=== PATIENT | female | born 1985 | race Caucasian/White ===

== ENCOUNTER 2020-03-09 04:32 | Inpatient (IN) ==
[2020-03-09] MEDS ORDERED: ONDANSETRON HCL/PF 2 MG/ML VIAL IV PRN (04:38)
[2020-03-09] MEDS ORDERED: diphenhydrAMINE HCL 25 MG CAPSULE PO PRN (04:38)
[2020-03-09] MEDS ORDERED: OXYTOCIN 20 UNITS in RINGER'S SOLUTION,LACTATED 1,000 ML IV ONE ×4 (04:38)
[2020-03-09] MEDS ORDERED: BISACODYL 10 MG SUPP.RECT RC PRN (04:38)
[2020-03-09] MEDS ORDERED: RINGER'S SOLUTION,LACTATED 1,000 ML IV ONE (04:38)
[2020-03-09] MEDS ORDERED: SENNOSIDES 8.6 MG TABLET PO PRN (04:38)
[2020-03-09] MEDS ORDERED: SIMETHICONE 80 MG TAB.CHEW PO PRN (04:38)
[2020-03-09] MEDS ORDERED: KETOROLAC TROMETHAMINE 30 MG/ML VIAL IV PRN (04:38)
[2020-03-09 05:13] LABS: Hematocrit 38.8 % (37.0-47.0); Hemoglobin 12.7 gm/dL (12.5-16.0); Mean Cell Volume 90.7 fl (78-100); Mean Corpuscular Hemoglobin 29.7 pg (27-31); Mean Corpuscular Hgb Conc 32.7 g/dl (32-36); Neutrophil # 9.4 K/mm3 (1.3-6.0); Neutrophil % 70.5 % (42-75.0); Platelet Count 237 K/mm3 (150-450); Red Blood Count 4.28 M/mm3 (4.2-5.4); Red Cell Distribution Width 13.2 % (11.5-14.0); White Blood Count 13.3 K/mm3 (4.0-10.5)
[2020-03-09] MEDS: RINGER'S SOLUTION,LACTATED 1,000 ML IV PRN ×2 (05:14→11:14)
[2020-03-09 05:26] LABS: Albumin * 2.6 gm/dl (3.4-5.0); Anion Gap 13.2 mmol/L (6.8-13.8); BUN/Creatinine Ratio 14.9 (9.0-21.6); Bilirubin, Total 0.2 mg/dL (0.0-1.1); Ca. Corrected For Albumin 9.9 mg/dL (8.4-10.2); Calcium * 9.1 mg/dL (7.9-10.9); Carbon Dioxide 25.7 mmol/L (24-32.6); Potassium 3.9 mmol/L (3.4-4.6); Total Protein 6.5 gm/dL (6.2-8.2)
[2020-03-09] MEDS ORDERED: PHENYLEPHRINE HCL 10 MG/ML AMPUL ONE (06:24)
[2020-03-09] MEDS ORDERED: BUPIVACAINE HCL/EPINEPHRINE 50 ML VIAL ONE (06:25)
--- NOTE | 2020-03-09 06:45 | ANES ---
Anesthesia Pre Procedure Eval Vitals/Labs: Last Vital Signs Temp 36.7 C 03/09/20 05:00 Pulse 96 03/09/20 05:00 Resp 20 03/09/20 05:00 BP 126/86 03/09/20 05:00 Pulse Ox 97 03/09/20 05:00 HOME MEDICATIONS calcium carbonate 200 mg calcium (500 mg) chewable tablet 400 mg PO TID PRN tab 08/26/19 [Last Taken 03/08/20 08:00] citalopram 20 mg tablet 20 mg PO DAILY 08/26/19 [Last Taken 03/08/20 08:00] lamotrigine 25 mg tablet 50 mg PO ONCE tab 08/26/19 [Last Taken 03/08/20 08:00] levothyroxine 100 mcg capsule 100 mcg PO DAILY 08/26/19 [Last Taken 03/06/20 08:00] prenat.vits,marline,klh-rqut-xzgan 1 tab PO DAILY 08/26/19 [Last Taken 03/08/20 08:00] famotidine 20 mg tablet 20 mg PO DAILY 09/25/19 [Last Taken 03/08/20 08:00] Allergies/Adverse Reactions: Allergies Allergy/AdvReac Type Severity Reaction Status Date / Time venom-wasp Allergy Anaphylaxis Verified 03/09/20 04:57 amoxicillin AdvReac Hives Verified 03/09/20 04:57 - Planned Procedure Planned Procedure: Repeat Section Medication List Reviewed:: Yes Allergies Verified: Yes Medical History (Last Reviewed 03/09/20 @ 06:44 by Jorge Flores CRNA) GERD (gastroesophageal reflux disease) only with Depression Hypothyroidism Onset Date: ~2011 PCOS (polycystic ovarian syndrome) diagnosed at age 16 Anemia Missed Onset Date: ~2017 Preeclampsia Onset Date: ~2013 Surgical History (Last Reviewed 03/09/20 @ 06:44 by Jorge Flores CRNA) H/O right knee surgery Onset Date: ~2005 ACL repair History of section Onset Date: ~2013 due to pre-eclampsia, 38 weeks History of dilation and curettage missed History of wisdom tooth extraction Onset Date: ~2003 Family History (Last Reviewed 03/09/20 @ 06:44 by Jorge Flores CRNA) Mother Lupus Hypertension Father Depression Brother Hypertension Depression Pulmonary hypertension - Family Anesthesia History Family History:: no untoward family reactions to anesthesia, no familial bleeding tendencies, no family history of clotting disorders, no family history of premature - Airway/Neck/Teeth Within Normal Limits:: Yes Teeth Condition: intact Neck Exam: full range of motion Mallampatti Score: 1 Thyromental (T-M) distance: > 6 cm Mandibulo Hyoid distance: > 3 cm - Respiratory Respiratory Physical: lungs clear Smoking Status: Never smoker Sleep Apnea currently treated: No Sleep Apnea by current assessment: No - Cardiovascular Tolerate Activity: Fair Heart Sounds: S1 & S2, Regular - Anesthesia Assessment and Plan ASA Class: PS, II, E Anesthesia Type Plan: Block - Biltaeral TAP block for post op pain relief, Spinal
[2020-03-09] MEDS ORDERED: ceFAZolin SODIUM 1 GM VIAL ONE (06:54)
--- NOTE | 2020-03-09 08:47 | OR ---
Operative Report - Dictated Report Narrative: Date of delivery: 03/09/2020 Time of delivery: 743 Gender: female weight: 3135 grams APGARS: 5/9 Preoperative diagnosis: IUP at 37w 1d, GHTN, PCOS Postoperative diagnosis: IUP at 37w 1d, GHTN, PCOS, extensive intra-abdominal adhesions, extensive bladder adhesions, adhesion of the uterus to the right pelvic side wall, omental hernia, nuchal cord x4, vacuum-assisted delivery Procedure: Repeat delivery, lysis of adhesions Surgeon: Dr. Loza Anesthesia: Spinal Anesthesiologist: Jorge Flores CRNA Description of the procedure: The patient is a 34 year old at 37w 1d who presents to labor and delivery today for a repeat delivery due to GHTN. She was taken to the operating room where spinal anesthesia was induced. She was then prepped and draped in the supine position in the standard surgical fashion. The abdomen was prepped with duraprep. Prophylactic antibiotics were administered. A Pfannenstiel skin incision was made following the previous skin incision. The incision was carried through the subcutaneous tissue which was greater than 4 cm. The fascia was incised in the midline. The fascial incision was extended laterally and sharply. The fascia was tented up superiorly and dissected off the underlying rectus muscle. An omental hernia was noted superiorly and this was dissected off the rectus muscle. The peritoneum was entered bluntly with good visualization of both the bladder and the bowel. The uterus was noted to be adherent to the right pelvic side wall. This was a dense adhesion which I decided not to take down due to concern for heavy bleeding. Instead, I extended both my skin incision and the fascial incision to create more room for delivery. The bladder was also densely adherent and a bladder flap was created being careful to identify the bladder at all times and to separate it from the lower segment. A large Ryan retractor was placed. The uterus was incised in a low transverse fashion. The placenta was cut along with the uterine incision. The uterine incision was extended bluntly. Membranes were ruptured and clear fluid was noted. Initially, a double nuchal cord was noted and the cord was reduced. Once the first two loops were reduced, an additional two loops were noted and reduced prior to delivery. The vertex did not deliver easily and thus a vacuum was used due to the position of the head. The shoulders delivered without difficulty but then the right arm was delivered to allow the rest of the body to deliver. Gentle traction was used throughout delivery. The cord was clamped and cut and the was handed off to the attending pediatric staff. Cord blood was collected. The placenta was delivered by expression and appeared intact. The uterus was cleared of all clots and debris. The uterine incision was closed with a double layer of 0-vicryl. Pressure was held for 5 minutes as the patient had large vessels on the left side of the uterine incision. Additional figure of eight sutures were placed for additional hemostasis. The Ryan retractor was removed from the abdomen. Hemostasis was adequate. The rectus muscles were reapproximated in the midline using 2-0 vicryl. The subfascial tissues were examined and made hemostatic. The rectus muscles we re inspected and made hemostatic. The fascia was closed with 1-0 vicryl suture in a running fashion. The subcutaneous tissue was irrigated and made hemostatic. The space was closed with 2-0 vicryl for prevention of wound infection. The skin was closed with 3-0 monocryl on a Colt needle. Jemison chau was placed over the incision. The incision was covered with a dressing for 24 hours for inf ection prevention. All sponge, lap, and needle counts were correct x3. The patient tolerated the procedure well. She was transferred to the recovery room in stable condition. EBL: 1000 mL Complications: none Specimens: cord blood, placenta History for MU Definition: * The number of deliveries resulting in a live the patient experienced prior to current hospitalization * The previous delivery of live twins or any live multiple gestation is considered one live event. *If primagravida or nulliparous is documented select zero for the number of previous live births. Live Events: 1
--- NOTE | 2020-03-09 09:10 | ANES ---
Anesthesia Procedure Note Procedure Note: ANESTHESIA PROCEDURE NOTE Date of Procedure: 03/09/2020 Time of procedure: 8:55 AM. Performed by: PEREZ Lunsford CRNA, MSN Non Destructive Testing Specialist: Alee Quinn RN. Preprocedure diagnosis: Post section pain. Post procedure diagnosis: Same. Procedure: Bilateral TAP block Indications: Post section pain relief. Findings: See below. Details of the procedure: The patient was brought to PACU and placed in the supine position. The patient was prepped with chlorhexidine and using ultrasound guidance the 3 abdominal muscular planes were identified and lidocaine 1% was infiltrated to the skin of the intended injection site. Under ultrasound guidance the the internal oblique and transverse this abdominis muscle layers were approached with visualization of a 4 inch block needle until the tip of the needle rested in the plane between the muscles. 25 mL bupivacaine 0.5% with 1-200,000 epinephrine was injected and the procedure was repeated on the other side. Please see radiology/ultrasound report for details and images of the procedure. EBL: 0 Fluids: N/A. Specimen: N/A. Post procedure condition: The patient tolerated the procedure well. No complications were noted. Thank you for this consultation. Jorge Flores CRNA, ARNP, MSN
--- NOTE | 2020-03-09 09:11 | ANES ---
Post Anesthesia Discharge - Transfer of Care Transfer of Care handoff given to nurse: Yes - Discharge from PACU Discharge from PACU when meets criteria: Yes - Alert and comfortable.
--- NOTE | 2020-03-09 09:14 | ANES ---
Post Anesthesia Assessment - Vital Signs Vitals: Last Vital Signs Temp 36.7 C 03/09/20 09:10 Pulse 129 H 03/09/20 09:10 Resp 16 03/09/20 09:10 BP 142/76 H 03/09/20 09:10 Pulse Ox 100 03/09/20 09:10 Airway Patency: Normal - Mental Status Level Of Consciousness: Awake, Alert, Appropriate - Pain Level Pain Score: 0 - N/V Assessment Nausea/Vomiting Presence: None Dehydration:: No
[2020-03-09] MEDS: DOCUSATE SODIUM 100 MG CAPSULE PO SCH ×2 (09:34→21:21)
[2020-03-09] MEDS: HYDROcodone/ACETAMINOPHEN 1 EACH TABLET PO PRN ×5 (09:34→23:09)
[2020-03-09] MEDS: IBUPROFEN 800 MG TABLET PO PRN ×3 (09:35→23:09)
[2020-03-10] MEDS: HYDROcodone/ACETAMINOPHEN 1 EACH TABLET PO PRN ×4 (03:44→16:46)
[2020-03-10] MEDS ORDERED: lamoTRIgine 100 MG TABLET PO SCH (03:45)
--- NOTE | 2020-03-10 03:47 | PN ---
Subjective - Date and Time Seen Date: 03/10/20 Time: 03:45 Subjective Narrative: Patient reports pain but is currently getting pain medication. No other complaints. Objective Objective Narrative: See vital signs - Review of Systems Generalized/Overall Review: Reports: No Symptoms Reported Misc: All systems neg except as marked - Vitals Vitals: Last Vital Signs Temp 36.6 C 03/09/20 20:08 Pulse 97 03/09/20 20:08 Resp 16 03/09/20 20:08 BP 133/81 03/09/20 20:08 Pulse Ox 97 03/09/20 20:08 - Abnormal Lab Findings Abnormal Lab Findings: Abnormal Lab Results 03/09/20 03/09/20 03/09/20 Range/Units 04:50 04:50 08:36 WBC 13.3 H (4.0-10.5) K/mm3 Immature Gran % (Auto) 1.10 H (0.001-0.429) % Immature Gran # (Auto) 0.15 H (0.000-0.0310) K/mm3 Lymphocytes % 18.8 L (20-51) % Neutrophils # 9.4 H (1.3-6.0) K/mm3 ALT 17 L (19-67) U/L Albumin 2.6 L (3.4-5.0) gm/dl U Random Total Protein 14.0 H (0-12) mg/dL - Exam Constitutional: Present: Alert, Oriented x3, Cooperative, No distress ENT Exam: Present: hearing grossly normal Neck: Present: normal inspection Breasts: Present: Exam deferred Abdomen: Present: soft, nontender, nondistended - dressing c/d/i /Rectal: Present: Exam deferred Extremity: Present: non-tender, no calf tenderness Skin Exam: Present: normal color, warm/dry, no cyanosis Neurologic: Present: alert, normal mood/affect, oriented x 3 Appearance: Present: appropriate appearance, appropriate insight, neat Eye contact: Present: cooperative, good eye contact, normal speech Thoughts: Present: normal thought pattern, no apparent hallucination Cauti Physician Documentation - Urinary Catheter Management Urethral (Trinh) Urethral Indwelling: No Date of Insertion: 03/09/20 Time of Insertion: 07:28 Date of Removal: 03/09/20 Time of Removal: 19:50 Assessment/Plan Plan Narrative: POD 1 s/p repeat delivery Doing well Discharge POD 3 Patient desires OCs for contraception
[2020-03-10] MEDS ORDERED: ceFAZolin SODIUM 1 GM VIAL IV PRN (06:00)
[2020-03-10] MEDS: IBUPROFEN 800 MG TABLET PO PRN ×2 (07:46→13:46)
[2020-03-10] MEDS: LEVOTHYROXINE SODIUM 100 MCG TABLET PO SCH (07:46)
[2020-03-10] MEDS: CITALOPRAM HYDROBROMIDE 20 MG TABLET PO SCH (09:03)
[2020-03-10] MEDS: DOCUSATE SODIUM 100 MG CAPSULE PO SCH (09:03)
[2020-03-10] MEDS: PRENATAL VITS96/IRON FUM/FOLIC 1 TAB TABLET PO SCH (09:03)
[2020-03-11] MEDS: IBUPROFEN 800 MG TABLET PO PRN ×4 (00:27→19:10)
[2020-03-11] MEDS: HYDROcodone/ACETAMINOPHEN 1 EACH TABLET PO PRN ×3 (07:03→19:11)
[2020-03-11] MEDS: DOCUSATE SODIUM 100 MG CAPSULE PO SCH ×3 (07:03→23:33)
[2020-03-11] MEDS: LEVOTHYROXINE SODIUM 100 MCG TABLET PO SCH (07:03)
--- NOTE | 2020-03-11 08:35 | PN ---
Subjective - Date and Time Seen Date: 03/11/20 Time: 08:33 Subjective Narrative: Patient reports pain but is currently getting pain medication. No other complaints. Objective Objective Narrative: See vital signs - Review of Systems Generalized/Overall Review: Reports: No Symptoms Reported Misc: All systems neg except as marked - Vitals Vitals: Last Vital Signs Temp 36.5 C 03/11/20 07:22 Pulse 105 H 03/11/20 07:22 Resp 18 03/11/20 07:22 BP 137/85 03/11/20 07:22 Pulse Ox 98 03/11/20 07:22 - Exam Constitutional: Present: Alert, Oriented x3, Cooperative, No distress Abdomen: Present: soft, nontender, nondistended - incision c/d/i Extremity: Present: non-tender, no calf tenderness Skin Exam: Present: normal color, warm/dry, no cyanosis Neurologic: Present: alert, normal mood/affect, oriented x 3 Appearance: Present: appropriate appearance, appropriate insight, neat, no memory impairment Eye contact: Present: cooperative, good eye contact, normal speech Thoughts: Present: normal thought pattern Cauti Physician Documentation - Urinary Catheter Management Urethral (Trinh) Urethral Indwelling: No Date of Insertion: 03/09/20 Time of Insertion: 07:28 Date of Removal: 03/09/20 Time of Removal: 19:50 Assessment/Plan Plan Narrative: POD 2 s/p delivery Doing well Discharge today or tomorrow depending on patient's preference
[2020-03-11] MEDS: PRENATAL VITS96/IRON FUM/FOLIC 1 TAB TABLET PO SCH (09:18)
[2020-03-11] MEDS: CITALOPRAM HYDROBROMIDE 20 MG TABLET PO SCH (09:19)
[2020-03-12] MEDS: IBUPROFEN 800 MG TABLET PO PRN (03:51)
[2020-03-12] MEDS: HYDROcodone/ACETAMINOPHEN 1 EACH TABLET PO PRN ×2 (03:51→08:13)
[2020-03-12] MEDS: LEVOTHYROXINE SODIUM 100 MCG TABLET PO SCH (06:50)
[2020-03-12] MEDS: CITALOPRAM HYDROBROMIDE 20 MG TABLET PO SCH ×2 (06:51→11:46)
--- NOTE | 2020-03-12 07:31 | PN ---
Subjective - Date and Time Seen Date: 03/12/20 Time: 07:30 Subjective Narrative: Patient reports pain but is currently getting pain medication. No other complaints. Objective Objective Narrative: See vital signs - Review of Systems Generalized/Overall Review: Reports: No Symptoms Reported Misc: All systems neg except as marked - Vitals Vitals: Last Vital Signs Temp 36.7 C 03/11/20 19:00 Pulse 102 H 03/11/20 19:00 Resp 20 03/11/20 19:00 BP 148/88 H 03/11/20 19:00 Pulse Ox 99 03/11/20 19:00 - Exam Constitutional: Present: Alert, Oriented x3, Cooperative, No distress ENT Exam: Present: hearing grossly normal Breasts: Present: Exam deferred Abdomen: Present: soft, nontender, nondistended Extremity: Present: non-tender, no calf tenderness Skin Exam: Present: normal color, warm/dry, no cyanosis Neurologic: Present: alert, normal mood/affect, oriented x 3 Appearance: Present: appropriate appearance, appropriate insight Eye contact: Present: cooperative, good eye contact, normal speech Thoughts: Present: normal thought pattern Cauti Physician Documentation - Urinary Catheter Management Urethral (Trinh) Urethral Indwelling: No Date of Insertion: 03/09/20 Time of Insertion: 07:28 Date of Removal: 03/09/20 Time of Removal: 19:50 Assessment/Plan Plan Narrative: POD 3 s/p repeat delivery Doing well Discharge today Follow-up in 1 week for a BP check and in 6 weeks for PP visit
[2020-03-12 07:52] VITALS: BP 144/92
[2020-03-12] MEDS: PRENATAL VITS96/IRON FUM/FOLIC 1 TAB TABLET PO SCH (08:10)
[2020-03-12] MEDS: DOCUSATE SODIUM 100 MG CAPSULE PO SCH (08:10)
== END 2020-03-12 10:20 | disposition home or self-care (01) | DRG 788 ==
LOC: OB 04:32 → MS 03-11 19:53
PROVIDERS: ADMIT Obstetrics & Gynecology; ATTEND Obstetrics & Gynecology
CPT/HCPCS: 36415; 59025; 80053; 82570; 84155; 84156; 85025; 86850; 88307; 88888